=== PATIENT | female | born 1935 | race Caucasian/White ===

== ENCOUNTER 2017-04-16 11:56 | Inpatient (IN) | payer MEDICARE ==
[2017-04-16 13:19] LABS: BASO % 0.9 % (0.0-2.0); HEMOGLOBIN 10.7 g/dL (11.0-16.0); LYMPH # 0.7 K/uL (1.0-4.3); MEAN CELL VOLUME 59.8 fL (81.0-99.0); MEAN CORPUSCULAR HGB CONC 31.7 g/dL (33.0-37.0); MONO # 0.4 K/uL (0.0-0.8); MONO % 11.7 % (0.0-10.0); NEUT # 2.5 K/uL (1.8-7.0); NEUT % 67.4 % (50.0-75.0); NRBC % 0.4 % (0.0-2.0); RBC 5.66 Mil/uL (3.80-5.20); RED CELL DISTRIBUTION WIDTH 18.2 % (11.5-14.5); WHITE BLOOD COUNT 3.8 K/uL (4.8-10.8)
[2017-04-16 13:25] LABS: INR 1.2; PROTHROMBIN TIME 13.4 SECONDS (9.7-12.2)
--- NOTE | 2017-04-16 13:31 | RAD ---
PROCEDURE: CHEST RADIOGRAPH, 1 VIEW HISTORY: SOB COMPARISON: None available. FINDINGS: LUNGS: Patchy opacity in the left lower lobe may represent atelectasis and/or infiltrate. . Small left-sided effusion not excluded. PLEURA: As above. No apparent pneumothorax CARDIOVASCULAR: Normal. OSSEOUS STRUCTURES: No significant abnormalities. VISUALIZED UPPER ABDOMEN: Normal. OTHER FINDINGS: None. IMPRESSION: Patchy opacity in the left lower lobe may represent atelectasis and/or infiltrate. . Small left-sided effusion not excluded.
[2017-04-16 13:43] LABS: ALB/GLOB RATIO 1.3 (1.0-2.1); ALBUMIN 3.8 g/dL (3.5-5.0); ALT/SGPT 24 U/L (9-52); AST/SGOT 20 U/L (14-36); BLOOD UREA NITROGEN 13 mg/dL (7-17); CALCIUM 8.9 mg/dl (8.6-10.4); GFR AFRICAN-AMERICAN > 60; GFR NON-AFRICAN AMERICAN 60; LIPASE 79 U/L (23-300)
[2017-04-16] MEDS ORDERED: Albuterol 0.083% Inhal Sol (2.5 mg/3 mL) UD IH STA (13:44)
[2017-04-16 13:51] LABS: B-TYPE NATRIURETIC PEPTIDE 2790 pg/mL (0-900); CK-MB 0.96 ng/mL (0.0-3.38)
[2017-04-16] MEDS ORDERED: MethylPREDNISolone 40 mg Vial IVP STA (13:59)
[2017-04-16] MEDS ORDERED: cefTRIAXone IV 1 gm in Dextros 50 ML IV ONE (14:00)
--- NOTE | 2017-04-16 14:07 | C.PDOC ---
History Of Present Illness 81 y/o female with PMHx of Stroke and HTN presents to ED with complaints of productive cough for 1-2 weeks. Patient states when she coughs she feels difficulty breathing. Pt saw PMD last week, given medication and had labs. Patient states symptoms persisted, followed up with PMD today and instructed she come to ED for further evaluation. Patient states she "feels good" and denies chest pain, fever or any other complaints at this time. Time Seen by Provider: 04/16/17 12:41 Chief Complaint (Nursing): Shortness Of Breath History Per: Patient History/Exam Limitations: no limitations Onset/Duration Of Symptoms: Days Current Symptoms Are (Timing): Still Present Additional History Per: Patient (Patient came to ED with prescription from Dr. Valverde for admission for COPD exacerbation to Dr. Napoles) Past Medical History Reviewed: Historical Data, Nursing Documentation, Vital Signs Vital Signs: Last Vital Signs Temp 98.6 F 04/16/17 12:31 Pulse 63 04/16/17 12:31 Resp 20 04/16/17 12:31 BP 171/70 H 04/16/17 12:31 Pulse Ox 94 L 04/16/17 16:55 - Medical History PMH: No Chronic Diseases Surgical History: No Surg Hx Family History: States: No Known Family Hx - Social History Hx Alcohol Use: No Hx Substance Use: No - Immunization History Hx Tetanus Toxoid Vaccination: No Hx Influenza Vaccination: No Hx Pneumococcal Vaccination: No Review Of Systems Constitutional: Negative for: Fever, Chills Cardiovascular: Negative for: Chest Pain Respiratory: Positive for: Cough, Shortness of Breath Skin: Negative for: Rash Physical Exam - Physical Exam Appears: Non-toxic, No Acute Distress Skin: Warm, Dry, No Rash Head: Atraumatic, Normacephalic Eye(s): bilateral: Normal Inspection, EOMI Nose: Normal Neck: Normal ROM, Supple Chest: Symmetrical Cardiovascular: Rhythm Regular Respiratory: Normal Breath Sounds, No Accessory Muscle Use, No Rales, No Rhonchi , No Wheezing Gastrointestinal/Abdominal: Soft, No Tenderness, No Guarding, No Rebound Extremity: No Pedal Edema, Capillary Refill (<2 seconds) Neurological/Psych: Oriented x3 ED Course And Treatment - Laboratory Results Result Diagrams: 04/16/17 13:11 04/16/17 13:11 ECG: Interpreted By Me, Viewed By Me ECG Rhythm: Sinus Rhythm ECG Interpretation: Normal Rate From EC (bpm) O2 Sat by Pulse Oximetry: 94 (RA) - Other Rad CXR X-Ray: Viewed By Me, Read By Radiologist Interpretation: PROCEDURE: CHEST RADIOGRAPH, 1 VIEW. HISTORY: SOB. COMPARISON: None available. FINDINGS: LUNGS: Patchy opacity in the left lower lobe may represent atelectasis and/or infiltrate. . Small left-sided effusion not excluded. PLEURA: As above. No apparent pneumothorax. CARDIOVASCULAR: Normal. OSSEOUS STRUCTURES: No significant abnormalities. VISUALIZED UPPER ABDOMEN: Normal. OTHER FINDINGS: None. IMPRESSION: Patchy opacity in the left lower lobe may represent atelectasis and/or infiltrate. . Small left-sided effusion not excluded. Progress Note: Case discussed with Dr Napoles, agreed upon admission. Disposition - Disposition Disposition: HOSPITALIZED Disposition Time: 12:00 Condition: STABLE - Clinical Impression Clinical Impression: Bronchitis, Pneumonia - PA / FILM PROJECTOR OPERATOR / Resident Statement MD/DO has reviewed & agrees with the documentation as recorded. - Scribe Statement The provider has reviewed the documentation as recorded by the Scribe Ino Rodriguez All medical record entries made by the Amyiblashell were at my direction and personally dictated by me. I have reviewed the chart and agree that the record accurately reflects my personal performance of the history, physical exam, medical decision making, and the department course for this patient. I have also personally directed, reviewed, and agree with the discharge instructions and disposition.
[2017-04-16] MEDS ORDERED: MethylPREDNISolone 40 mg Vial ONE (15:27)
[2017-04-16] MEDS ORDERED: guaiFENesin DM 200 mg-20 mg/10 ml UD PO PRN (15:38)
--- NOTE | 2017-04-16 15:44 | CP.PCM.PN ---
Subjective - Date & Time of Evaluation Date of Evaluation: 04/16/17 Time of Evaluation: 15:20 - Subjective Subjective: Patient is seen and examined at bedside. H&P dictated #[id number] Objective - Vital Signs/Intake and Output Vital Signs (last 24 hours): Temp Pulse Resp BP Pulse Ox 98.6 F 63 20 171/70 H 94 L 04/16/17 12:31 04/16/17 12:31 04/16/17 12:31 04/16/17 12:31 04/16/17 14:07 - Medications Medications: Current Medications Ceftriaxone Sodium 1 gm/ (Sodium Chloride) 100 mls @ 100 mls/hr IVPB ONCE ONE Stop: 04/16/17 16:59 Last Admin: 04/16/17 15:24 Dose: 100 mls/hr - Labs Labs: 04/16/17 13:11 04/16/17 13:11 PT 13.4 SECONDS (9.7-12.2) H 04/16/17 13:11 INR 1.2 04/16/17 13:11 APTT 28 SECONDS (21-34) 04/16/17 13:11
[2017-04-16] MEDS ORDERED: Albuterol 0.083% Inhal Sol (2.5 mg/3 mL) UD ONE (16:11)
[2017-04-16] MEDS: MethylPREDNISolone 40 mg Vial IVP SCH ×2 (16:38→22:45)
[2017-04-16] MEDS: Azithromycin 500 MG in Sodium Chloride 0.9% 250 ML IVPB SCH (17:46)
--- NOTE | 2017-04-16 19:26 | CT ---
EXAM: CT Chest Without Intravenous Contrast EXAM DATE/TIME: Exam ordered 04/16/2017 3:39 PM CLINICAL HISTORY: 81 years old, female; Signs and symptoms; Shortness of breath; Additional info: R/O infiltrate TECHNIQUE: Axial computed tomography images of the chest without intravenous contrast. All CT scans at this facility use one or more dose reduction techniques, viz.: automated exposure control; ma/kV adjustment per patient size (including targeted exams where dose is matched to indication; i.e. head); or iterative reconstruction technique. Coronal and sagittal reformatted images were created and reviewed. COMPARISON: No relevant prior studies available. FINDINGS: There is a small hiatal hernia Lungs: There is volume loss with bronchocentric consolidation noted in the anterior segment of the left upper lobe. Bronchocentric consolidation is also noted along the central bronchovascular bundle of the left lower lobe. Small centrilobular nodules surround the area of the consolidation. Motion artifact degrades image quality. Blebs are noted at the lung apices bilaterally. A nodule is noted laterally in the anterior segment of the left upper lobe (series 3 image 52) measuring 7 mm. Pleural space: There is a small left pleural effusion. No pneumothorax. Heart: Unremarkable. No cardiomegaly. No significant pericardial effusion. Bones/joints: There are degenerative changes noted of the lower thoracic spine. No acute fracture. No dislocation. Soft tissues: Unremarkable. Vasculature: Unremarkable. No thoracic aortic aneurysm. Lymph nodes: Unremarkable. No enlarged lymph nodes. IMPRESSION: 1. Left upper lobe pneumonia. Adjacent predominantly centrilobular nodules may reflect pneumonitis. Followup recommended. 2. There is a small hiatal hernia
--- NOTE | 2017-04-16 19:26 | HP ---
CHIEF COMPLAINT: Progressive worsening of cold, cough with wheezing over the past few weeks. HISTORY OF PRESENT ILLNESS: Ms. Menon is an 81-year-old female with history of hypertension, TIA versus CVA without any residual deficits, who has been following up with Dr. Valverde. Came in to the ED as sent by Dr. Valverde to be admitted to the hospital for further management of her acute symptoms. All the history obtained from the patient. As per the patient, she has been having cold symptoms since Sukumar time. Initially, her symptoms got better, but for the past few weeks, her cold symptoms got worse and has been coughing with productive sputum, which is whitish to yellowish in color. Had fever earlier. Denies any fever, but has been having shortness of breath and progressive worsening of wheezing. Denies any fever at the present time. Denies any headache, dizziness. Denies any chest pain. Denies any nausea, vomiting, abdominal pain, diarrhea or constipation. Denies any other urinary complaints. Denies any leg pains or leg cramps. Denies any other neurologic symptoms. PAST MEDICAL HISTORY: As described, hypertension, history of CVA, chronic smoker. PAST SURGICAL HISTORY: Underwent hemorrhoid surgery in 2007. FAMILY HISTORY: Brother is 95, just came out of the hospital with pneumonia. Her sister at age 90. ALLERGIES: NO KNOWN DRUG ALLERGIES. PERSONAL HISTORY: She is single. Lives alone. Not having any children. She was earlier, but . Now living single. 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 SOCIAL HISTORY: She was an ex-smoker, smoked 2 packs per day for about 50 years. Denies any alcohol or drug abuse. HOME MEDICATIONS: Include atenolol 100 mg p.o. b.i.d., Plavix 75 mg p.o. daily. REVIEW OF SYSTEMS: As described in history of present illness. All other systems reviewed and was found to be negative. PHYSICAL EXAMINATION: GENERAL: Elderly female, lying in bed, in no acute distress. VITAL SIGNS: Blood pressure 169/68, pulse 78, respirations 20, temperature 98.6 degrees Fahrenheit, O2 sats 92% on room air. HEENT: Pupils equal, round, reacting to light and accommodation. Extraocular muscles intact. No icterus. Positive pharyngeal congestion. Positive nasal congestion. NECK: Supple. No JVD. LUNGS: Bilateral vesicular breath sounds. Bilateral coarse wheezing heard. Bilateral occasional rhonchi at the base is heard. CARDIOVASCULAR SYSTEM: S1 and S2 present, regular. ABDOMEN: Soft, nontender. Bowel sounds present. No guarding. No rigidity. No rebound tenderness noted. CENTRAL NERVOUS SYSTEM: Alert, awake, oriented x3. No focal deficits noted. EXTREMITIES: No edema. Palpable peripheral pulses. LABORATORY DATA: Labs done from ED, WBC 3.8, hemoglobin 10.7, hematocrit 33.9, platelets 164. PT 13.4, INR 1.2, PTT 28. Sodium 135, potassium 3.9, chloride 100, bicarb 29, BUN 13, creatinine 0.9, glucose 101, calcium 8.9, total bili 0.7, AST 20, ALT 24, alkaline phosphatase 59. Cardiac enzymes x1 negative. ProBNP 2790. Total protein 6.6, albumin 3.8, globulin 2.8, lipase 79. Chest x-ray: Questionable patchy opacity in the left lower lobe, may represent atelectasis versus infiltrates. Small left-sided effusion not excluded. ASSESSMENT: Elderly female with history of hypertension, history of cerebrovascular accident, chronic smoker, not on any bronchodilators, admitted for progressively worsening symptoms of cold, cough, wheezing and shortness of breath over the past 3 weeks. The patient is being admitted for further management. Her symptoms consistent with acute bronchitis with the bronchospasm. Rule out pneumonia. Prior history of smoking, hypertension, history of cerebrovascular accident. PLAN: The patient is being admitted to telemetry. We will give nebulizer treatments every 6 hours. The patient received Rocephin in the ED and Solu-Medrol. We will give Solu-Medrol 40 mg IV q. 8 hours. Continue with Rocephin. Start Zithromax 500 mg IV daily. We will get CT scan of the chest to rule out any infiltrates. We will give cough syrup. Start Singulair 10 mg daily. Blood pressure is high. We will continue with Tenormin 100 mg p.o. b.i.d. and monitor blood pressure closely. Adjust medications as needed. Plavix 75 mg p.o. daily, Protonix for GI prophylaxis and subcu heparin for DVT prophylaxis. We will add further recommendation as her clinical course progresses. Boom Napoles MD [facility] # [id number]
[2017-04-16] MEDS: Albuterol-Ipratrop 3 mg / 0.5 (3 ml) UD INH SCH (19:47)
[2017-04-16 20:21] LABS: SQUAMOUS EPITHIAL < 1 /hpf (0-5); URINE BILIRUBIN NEGATIVE (NEGATIVE); URINE BLOOD NEGATIVE (NEGATIVE); URINE CLARITY Clear (Clear); URINE COLOR Yellow (YELLOW); URINE GLUCOSE (UA) NORMAL (Normal); URINE LEUKOCYTE ESTERASE NEG Leu/uL (Negative); URINE NITRATE NEGATIVE (NEGATIVE); URINE PROTEIN NEGATIVE (NEGATIVE); URINE UROBILINOGEN NORMAL mg/dL (0.2-1.0)
[2017-04-17] MEDS: Albuterol-Ipratrop 3 mg / 0.5 (3 ml) UD INH SCH ×4 (01:38→19:29)
[2017-04-17 06:32] LABS: BASO % 0.2 % (0.0-2.0); HEMOGLOBIN 10.8 g/dL (11.0-16.0); LYMPH # 0.5 K/uL (1.0-4.3); LYMPH % 18.7 % (20.0-40.0); MEAN CELL VOLUME 59.8 fL (81.0-99.0); MEAN CORPUSCULAR HEMOGLOBIN 18.7 pg (27.0-31.0); MEAN CORPUSCULAR HGB CONC 31.3 g/dL (33.0-37.0); MONO # 0.1 K/uL (0.0-0.8); MONO % 2.4 % (0.0-10.0); NEUT # 2.3 K/uL (1.8-7.0); NEUT % 78.7 % (50.0-75.0); NRBC % 0.1 % (0.0-2.0); RBC 5.74 Mil/uL (3.80-5.20); RED CELL DISTRIBUTION WIDTH 18.2 % (11.5-14.5); WHITE BLOOD COUNT 2.9 K/uL (4.8-10.8)
[2017-04-17 06:51] LABS: ALB/GLOB RATIO 1.3 (1.0-2.1); ALBUMIN 3.6 g/dL (3.5-5.0); ALT/SGPT 17 U/L (9-52); AST/SGOT 17 U/L (14-36); BLOOD UREA NITROGEN 13 mg/dL (7-17); GFR AFRICAN-AMERICAN > 60; GFR NON-AFRICAN AMERICAN > 60; HDL CHOLESTEROL 48 mg/dL (30-70)
[2017-04-17 06:59] LABS: LDL CHOLESTEROL 64 mg/dL (0-129)
[2017-04-17 07:51] LABS: FOLATE 8.7 ng/mL
[2017-04-17] MEDS: MethylPREDNISolone 40 mg Vial IVP SCH ×3 (08:43→23:55)
[2017-04-17] MEDS: Azithromycin 500 MG in Sodium Chloride 0.9% 250 ML IVPB SCH (11:00)
--- NOTE | 2017-04-17 11:32 | CP.PCM.PN ---
Subjective - Date & Time of Evaluation Date of Evaluation: 04/17/17 Time of Evaluation: 11:40 - Subjective Subjective: Progress note dictated #[id number] Objective - Vital Signs/Intake and Output Vital Signs (last 24 hours): Temp Pulse Resp BP Pulse Ox 98 F 79 20 137/66 96 04/17/17 07:00 04/17/17 09:45 04/17/17 07:00 04/17/17 09:45 04/17/17 07:00 Intake and Output: 04/17/17 04/17/17 06:59 18:59 Intake Total 50 Balance 50 - Medications Medications: Current Medications Albuterol/Ipratropium (Duoneb 3 Mg/0.5 Mg (3 Ml) Ud) 3 ml INH RQ6 [facility] Last Admin: 04/17/17 07:38 Dose: 3 ml Atenolol (Tenormin) 100 mg PO BID [facility] Last Admin: 04/17/17 09:49 Dose: 100 mg Clopidogrel Bisulfate (Plavix) 75 mg PO DAILY [facility] Last Admin: 04/17/17 09:49 Dose: 75 mg Famotidine (Pepcid) 20 mg PO BID [facility] Last Admin: 04/17/17 09:49 Dose: 20 mg Guaifenesin/Dextromethorphan (Robitussin Dm) 10 ml PO Q4H PRN PRN Reason: Cough and congestion Heparin Sodium (Porcine) (Heparin) 5,000 units SC Q8 [facility] Last Admin: 04/17/17 05:46 Dose: 5,000 units Azithromycin 500 mg/ Sodium (Chloride) 250 mls @ 250 mls/hr IVPB DAILY [facility] Last Admin: 04/17/17 11:00 Dose: 250 mls/hr Ceftriaxone Sodium 1 gm/ (Sodium Chloride) 100 mls @ 100 mls/hr IVPB DAILY [facility] Last Admin: 04/17/17 09:49 Dose: 100 mls/hr Methylprednisolone (Solu-Medrol) 40 mg IVP Q8H [facility] Last Admin: 04/17/17 08:43 Dose: 40 mg Montelukast Sodium (Singulair) 10 mg PO HS [facility] Last Admin: 04/16/17 22:49 Dose: 10 mg - Labs Labs: 04/17/17 06:25 04/17/17 06:25 PT 13.4 SECONDS (9.7-12.2) H 04/16/17 13:11 INR 1.2 04/16/17 13:11 APTT 28 SECONDS (21-34) 04/16/17 13:11
[2017-04-17] MEDS: guaiFENesin DM 200 mg-20 mg/10 ml UD PO SCH ×2 (12:12→18:13)
--- NOTE | 2017-04-17 13:06 | PN ---
DATE: 04/17/2017 SUBJECTIVE: The patient is seen and examined at bedside. The patient is still complaining of cough with wheezing and shortness of breath on exertion. Denies any fever. Cough is still there, but worse at nighttime. All other systems reviewed and were found to be negative. PHYSICAL EXAMINATION: GENERAL: Elderly female, lying in bed, in no acute distress. VITAL SIGNS: Blood pressure 137/66, pulse rate 79, respirations 20, temperature 98 degrees Fahrenheit, O2 sats 96% on 2 L nasal cannula. HEENT: Pupils equal, round, reacting to light and accommodation. Extraocular muscles intact. No icterus. No pallor. No oral thrush. Positive pharyngeal congestion. NECK: Supple. No JVD. LUNGS: Bilateral vesicular breath sounds. Decreased bilateral wheezing. CARDIOVASCULAR SYSTEM: S1 and S2 present. Systolic murmur heard. ABDOMEN: Soft, nontender. Bowel sounds present. No guarding. No rigidity. No rebound tenderness noted. CENTRAL NERVOUS SYSTEM: Alert, awake, oriented x3. No focal deficits noted. EXTREMITIES: No edema. Palpable peripheral pulses. LABORATORY DATA: Labs from today, WBC 2.9, hemoglobin 10.8, hematocrit 34.3, platelets 170. Sodium 136, potassium 4.4, chloride 99, bicarb 30, BUN 13, creatinine 0.8, glucose 135, hemoglobin A1c 6.2, calcium 9.0. Iron saturation 9, ferritin 42. AST 17, ALT 17, alkaline phosphatase 56. Triglycerides 72, cholesterol 144, LDL 64, HDL 48, B12 of 849, folate 8.7. UA negative. Ferritin is 42. CT chest consistent with left lobe consolidation. Small hiatal hernia. MEDICATIONS: Include DuoNeb, atenolol 100 mg b.i.d., Zithromax 500 mg daily, Rocephin 1 g daily, Plavix 75 mg p.o. daily, Pepcid 20 mg p.o. b.i.d., Robitussin DM, subcu heparin, Solu-Medrol 40 mg IV q. 8 hours, Singulair 10 mg at bedtime. ASSESSMENT AND PLAN: Elderly female with history of hypertension, history of cerebrovascular accident, admitted for worsening shortness of breath and cough. CT chest consistent with pneumonia, left lobe with bronchospasm and asthma exacerbation. Found to have iron-deficiency anemia. We will continue with current antibiotic with Rocephin, Zithromax and continue with nebulizer treatments and prednisone. We will give cough medicine round the clock. Continue with deep venous thrombosis and gastrointestinal prophylaxis. Continue with Singulair. We will start ferrous sulfate 325 mg p.o. b.i.d. Advise the patient to have screening colonoscopy and routine followups as outpatient. We will add further recommendations as her clinical course progresses. Boom Napoles MD
[2017-04-18] MEDS: guaiFENesin DM 200 mg-20 mg/10 ml UD PO SCH ×4 (00:40→19:04)
[2017-04-18] MEDS: Albuterol-Ipratrop 3 mg / 0.5 (3 ml) UD INH SCH ×4 (01:41→19:57)
[2017-04-18] MEDS: MethylPREDNISolone 40 mg Vial IVP SCH ×2 (08:22→21:25)
[2017-04-18] MEDS: Azithromycin 500 MG in Sodium Chloride 0.9% 250 ML IVPB SCH (11:00)
--- NOTE | 2017-04-18 11:09 | CARD ---
APPROVED REPORT EKG Measurement Heart [id number] PA [id number] [id number] <Conclusion> Normal sinus rhythm Cannot rule out Anterior infarct, age undetermined Abnormal ECG
--- NOTE | 2017-04-18 11:53 | CP.PCM.PN ---
Subjective - Date & Time of Evaluation Date of Evaluation: 04/18/17 Time of Evaluation: 11:40 - Subjective Subjective: Progress note dictated # [id number] Objective - Vital Signs/Intake and Output Vital Signs (last 24 hours): Temp Pulse Resp BP Pulse Ox 98.3 F 82 20 180/74 H 94 L 04/18/17 08:00 04/18/17 08:00 04/18/17 08:00 04/18/17 08:00 04/18/17 11:28 Intake and Output: 04/18/17 04/18/17 06:59 18:59 Intake Total 520 Balance 520 - Medications Medications: Current Medications Albuterol/Ipratropium (Duoneb 3 Mg/0.5 Mg (3 Ml) Ud) 3 ml INH RQ6 [facility] Last Admin: 04/18/17 07:36 Dose: 3 ml Atenolol (Tenormin) 100 mg PO BID [facility] Last Admin: 04/18/17 09:41 Dose: 100 mg Clopidogrel Bisulfate (Plavix) 75 mg PO DAILY [facility] Last Admin: 04/18/17 09:41 Dose: 75 mg Famotidine (Pepcid) 20 mg PO BID [facility] Last Admin: 04/18/17 09:41 Dose: 20 mg Ferrous Sulfate (Feosol) 325 mg PO BID [facility] Last Admin: 04/18/17 09:41 Dose: 325 mg Guaifenesin/Dextromethorphan (Robitussin Dm) 10 ml PO Q6H [facility] Last Admin: 04/18/17 11:23 Dose: 10 ml Azithromycin 500 mg/ Sodium (Chloride) 250 mls @ 250 mls/hr IVPB DAILY [facility] Last Admin: 04/18/17 11:00 Dose: 250 mls/hr Ceftriaxone Sodium 1 gm/ (Sodium Chloride) 100 mls @ 100 mls/hr IVPB DAILY [facility] Last Admin: 04/18/17 09:42 Dose: 100 mls/hr Montelukast Sodium (Singulair) 10 mg PO HS [facility] Last Admin: 04/17/17 22:23 Dose: 10 mg - Labs Labs: 04/17/17 06:25 04/17/17 06:25 PT 13.4 SECONDS (9.7-12.2) H 04/16/17 13:11 INR 1.2 04/16/17 13:11 APTT 28 SECONDS (21-34) 04/16/17 13:11
[2017-04-18] MEDS ORDERED: MethylPREDNISolone 40 mg Vial IVP SCH (12:00)
[2017-04-18 18:21] LABS: LEGIONELLA AG URINE NEGATIVE (NEGATIVE)
[2017-04-18 18:24] LABS: MYCOPLASMA PNEUMONIAE IGM NEGATIVE (NEGATIVE)
--- NOTE | 2017-04-18 18:58 | CP.PCM.CON ---
History of Present Illness - History of Present Illness History of Present Illness: patient seen/examined. full consult to follow. echocardiogram reviewed. Patient has severe aortic valve stenosis. currently has bronchitis/respiratory infection/COPD. Recommend continued medical therapy and antibiotic therapy. will treat medically and schedule for outpatient cardiac cath and further management of aortic stenosis. Past Patient History - Past Medical History & Family History Past Medical History?: Yes - Past Social History Smoking Status: Former Smoker - CARDIAC Hx Hypertension: Yes - PULMONARY Hx Respiratory Disorders: No - NEUROLOGICAL HX Cerebrovascular Accident: Yes - HEENT Hx HEENT Problems: No - RENAL Hx Chronic Kidney Disease: No - ENDOCRINE/METABOLIC Hx Endocrine Disorders: No - HEMATOLOGICAL/ONCOLOGICAL Hx Blood Disorders: No - INTEGUMENTARY Hx Dermatological Problems: No - MUSCULOSKELETAL/RHEUMATOLOGICAL Hx Musculoskeletal Disorders: No Hx Falls: No - GASTROINTESTINAL Hx Gastrointestinal Disorders: No - GENITOURINARY/GYNECOLOGICAL Hx Genitourinary Disorders: No - PSYCHIATRIC Hx Substance Use: No - SURGICAL HISTORY Hx Surgeries: No - ANESTHESIA Hx Anesthesia: No Meds Allergies/Adverse Reactions: Allergies Allergy/AdvReac Type Severity Reaction Status Date / Time No Known Allergies Allergy Verified 04/16/17 12:36 - Medications Medications: Current Medications Albuterol/Ipratropium (Duoneb 3 Mg/0.5 Mg (3 Ml) Ud) 3 ml INH RQ6 [facility] Last Admin: 04/18/17 13:38 Dose: 3 ml Atenolol (Tenormin) 100 mg PO BID [facility] Last Admin: 04/18/17 09:41 Dose: 100 mg Clopidogrel Bisulfate (Plavix) 75 mg PO DAILY [facility] Last Admin: 04/18/17 09:41 Dose: 75 mg Famotidine (Pepcid) 20 mg PO BID [facility] Last Admin: 04/18/17 09:41 Dose: 20 mg Ferrous Sulfate (Feosol) 325 mg PO BID [facility] Last Admin: 04/18/17 09:41 Dose: 325 mg Guaifenesin/Dextromethorphan (Robitussin Dm) 10 ml PO Q6H [facility] Last Admin: 04/18/17 11:23 Dose: 10 ml Heparin Sodium (Porcine) (Heparin) 5,000 units SC Q12H [facility] Azithromycin 500 mg/ Sodium (Chloride) 250 mls @ 250 mls/hr IVPB DAILY [facility] Last Admin: 04/18/17 11:00 Dose: 250 mls/hr Ceftriaxone Sodium 1 gm/ (Sodium Chloride) 100 mls @ 100 mls/hr IVPB DAILY [facility] Last Admin: 04/18/17 09:42 Dose: 100 mls/hr Methylprednisolone (Solu-Medrol) 40 mg IVP Q12H [facility] Montelukast Sodium (Singulair) 10 mg PO HS [facility] Last Admin: 04/17/17 22:23 Dose: 10 mg Results - Vital Signs Recent Vital Signs: Last Vital Signs Temp 97.8 F 04/18/17 15:17 Pulse 76 04/18/17 15:17 Resp 18 04/18/17 15:17 BP 163/79 H 04/18/17 15:17 Pulse Ox 94 L 04/18/17 15:17 - Labs Result Diagrams: 04/17/17 06:25 04/17/17 06:25 Labs: Laboratory Results - last 24 hr 04/17/17 04/17/17 04/18/17 16:25 21:23 06:28 POC Glucose (mg/dL) 120 H 115 H 122 H Ur L.pneumophila Ag Mycoplasma pneumon IgM 04/18/17 04/18/17 04/18/17 11:10 13:48 16:44 POC Glucose (mg/dL) 118 H 130 H Ur L.pneumophila Ag Negative Mycoplasma pneumon IgM Negative
--- NOTE | 2017-04-18 18:59 | CP.PCM.CON ---
History of Present Illness - History of Present Illness History of Present Illness: I was asked to see patient by Dr Farley. Patient is a 81 year old female with a history of HTN, hypercholesterolemia who presents with cough and dyspnea. The patient states symptoms began about 2 weeks ago. She has noted productive cough and subjective fever. The patient has also noted shortness of breath for the last month. She denies chest pain. Review of Systems - Constitutional Constitutional: absent: As Per HPI, Anorexia, Chills, Daytime Sleepiness, Excessive Sweating, Fatigue, Fever, Frequent Falls, Headache, Increased Appetite , Lethargy, Malaise, Night Sweats, Snoring, Sleep Apnea, Weight Gain, Weight Loss, Weakness, Other - EENT Eyes: absent: As Per HPI, Blind Spots, Blurred Vision, Change in Vision, Decreased Night Vision, Diplopia, Discharge, Dry Eye, Exophthalmos, Floaters, Irritation, Itchy Eyes, Loss of Peripheral Vision, Pain, Photophobia, Requires Corrective Lenses, Sees Flashes, Spots in Vision, Tunnel Vision, Other Visual Disturbances, Loss of Vision, Other Ears: absent: As Per HPI, Decreased Hearing, Ear Discharge, Ear Pain, Tinnitus, Abnormal Hearing, Disequilibrium, Dizziness, Other Nose/Mouth/Throat: absent: As Per HPI, Epistaxis, Nasal Congestion, Nasal Discharge, Nasal Obstruction, Nasal Trauma, Nose Pain, Post Nasal Drip, Sinus Pain, Sinus Pressure, Bleeding Gums, Change in Voice, Dental Pain, Dry Mouth, Dysphagia, Halitosis, Hoarsness, Lip Swelling, Mouth Lesions, Mouth Pain, Odynophagia, Sore Throat, Throat Swelling, Tongue Swelling, Facial Pain, Neck Pain, Neck Mass, Other - Cardiovascular Cardiovascular: Dyspnea, Dyspnea on Exertion - Respiratory Respiratory: Cough, Dyspnea on Exertion - Gastrointestinal Gastrointestinal: absent: As Per HPI, Abdominal Pain, Belching, Bloating, Change in Bowel Habits, Change in Stool Character, Coffee Ground Emesis, Constipation, Cramping, Diarrhea, Dyspepsia, Dysphagia, Early Satiety, Excessive Flatus, Fecal Incontinence, Heartburn, Hematemesis, Hematochezia, Loose Stools, Melena, Nausea, Odynophagia, Temesmus, Vomiting, Other - Genitourinary Genitourinary: absent: As Per HPI, Change in Urinary Stream, Difficulty Urinating, Dysuria, Flank Pain, Hematuria, Pyuria, Nocturia, Urinary Incontinence, Urinary Frequency, Urinary Hesitance, Urinary Urgency, Voiding Freq/Small Amts, Freq UTI, Hx Renal/Bladder Calculi, Hx /Renal Surgery, Bladder Distension, Other - Musculoskeletal Musculoskeletal: absent: As Per HPI, Abnormal Gait, Arthralgias, Atrophy, Back Pain, Deformity, Joint Swelling, Limited Range of Motion, Loss of Height, Muscle Cramps, Muscle Weakness, Myalgias, Neck Pain, Numbness, Radiating Pain into Limb, Stiffness, Tingling, Other - Integumentary Integumentary: absent: As Per HPI, Acne, Alopecia, Bleeding Lesions, Change in Hair, Change in Nails, Change in Pigmentation, Changing Lesions, Dry Skin, Erythema, Furuncle, Hirsutism, Lesions, New Lesions, Non-Healing Lesions, Photosensitivity, Pruritus, Rash, Skin Pain, Skin Ulcer, Sores, Striae, Swelling , Unusual Bruising, Wounds, Jaundice, Other - Neurological Neurological: absent: As Per HPI, Abnormal Gait, Abnormal Hearing, Abnormal Movements, Abnormal Speech, Behavioral Changes, Burning Sensations, Confusion, Convulsions, Disequilibrium, Dizziness, Numbness, Focal Weakness, Frequent Falls , Headaches, Lack of Coordination, Loss of Vision, Memory Loss, Paresthesias, Radicular Pain, Restless Legs, Sensory Deficit, Syncope, Tingling, Tremor, Vertigo, Weakness, Other Visual Disturbances, Other - Psychiatric Psychiatric: absent: As Per HPI, Abnormal Sleep Pattern, Anhedonia, Anxiety, Auditory Hallucinations, Behavioral Changes, Change in Appetite, Change in Libido, Confusion, Depression, Difficulty Concentrating, Hallucinations, Homicidal Ideation, Hopelessness, Irritability, Memory Loss, Mood Swings, Panic Attacks, Paranoia, Suicidal Ideation, Visual Hallucinations, Tactile Hallucinations, Other - Endocrine Endocrine: absent: As Per HPI, Change in Body Appearance, Change in Libido, Cold Intolorance, Deepening of Voice, Excessive Sweating, Fatigue, Flushing, Heat Intolorance, Increase in Ring/Shoe/Hat Size, Palpitations, Polydipsia, Polyphagia, Polyuria, Other - Hematologic/Lymphatic Hematologic: absent: As Per HPI, Easy Bleeding, Easy Bruising, Lymphadenopathy, Other Past Patient History - Past Medical History & Family History Past Medical History?: Yes - Past Social History Smoking Status: Former Smoker - CARDIAC Hx Hypertension: Yes - PULMONARY Hx Respiratory Disorders: No - NEUROLOGICAL HX Cerebrovascular Accident: Yes - HEENT Hx HEENT Problems: No - RENAL Hx Chronic Kidney Disease: No - ENDOCRINE/METABOLIC Hx Endocrine Disorders: No - HEMATOLOGICAL/ONCOLOGICAL Hx Blood Disorders: No - INTEGUMENTARY Hx Dermatological Problems: No - MUSCULOSKELETAL/RHEUMATOLOGICAL Hx Musculoskeletal Disorders: No Hx Falls: No - GASTROINTESTINAL Hx Gastrointestinal Disorders: No - GENITOURINARY/GYNECOLOGICAL Hx Genitourinary Disorders: No - PSYCHIATRIC Hx Substance Use: No - SURGICAL HISTORY Hx Surgeries: No - ANESTHESIA Hx Anesthesia: No Meds Allergies/Adverse Reactions: Allergies Allergy/AdvReac Type Severity Reaction Status Date / Time No Known Allergies Allergy Verified 04/16/17 12:36 - Medications Medications: Current Medications Albuterol/Ipratropium (Duoneb 3 Mg/0.5 Mg (3 Ml) Ud) 3 ml INH RQ6 [facility] Last Admin: 04/18/17 13:38 Dose: 3 ml Atenolol (Tenormin) 100 mg PO BID [facility] Last Admin: 04/18/17 09:41 Dose: 100 mg Clopidogrel Bisulfate (Plavix) 75 mg PO DAILY [facility] Last Admin: 04/18/17 09:41 Dose: 75 mg Famotidine (Pepcid) 20 mg PO BID [facility] Last Admin: 04/18/17 09:41 Dose: 20 mg Ferrous Sulfate (Feosol) 325 mg PO BID [facility] Last Admin: 04/18/17 09:41 Dose: 325 mg Guaifenesin/Dextromethorphan (Robitussin Dm) 10 ml PO Q6H [facility] Last Admin: 04/18/17 11:23 Dose: 10 ml Heparin Sodium (Porcine) (Heparin) 5,000 units SC Q12H [facility] Azithromycin 500 mg/ Sodium (Chloride) 250 mls @ 250 mls/hr IVPB DAILY [facility] Last Admin: 04/18/17 11:00 Dose: 250 mls/hr Ceftriaxone Sodium 1 gm/ (Sodium Chloride) 100 mls @ 100 mls/hr IVPB DAILY [facility] Last Admin: 04/18/17 09:42 Dose: 100 mls/hr Methylprednisolone (Solu-Medrol) 40 mg IVP Q12H [facility] Montelukast Sodium (Singulair) 10 mg PO HS [facility] Last Admin: 04/17/17 22:23 Dose: 10 mg Physical Exam - Constitutional Appears: Non-toxic - Head Exam Head Exam: NORMAL INSPECTION - Eye Exam Eye Exam: Normal appearance - ENT Exam ENT Exam: Mucous Membranes Moist - Neck Exam Neck exam: Positive for: Normal Inspection - Respiratory Exam Respiratory Exam: Decreased Breath Sounds, Wheezes - Cardiovascular Exam Cardiovascular Exam: REGULAR RHYTHM, Systolic Murmur - GI/Abdominal Exam GI & Abdominal Exam: Normal Bowel Sounds - Rectal Exam Rectal Exam: Deferred - Extremities Exam Extremities exam: Negative for: pedal edema - Back Exam Back exam: NORMAL INSPECTION - Neurological Exam Neurological exam: Alert, Oriented x3 - Psychiatric Exam Psychiatric exam: Normal Affect - Skin Skin Exam: Normal Color Results - Vital Signs Recent Vital Signs: Last Vital Signs Temp 97.8 F 04/18/17 15:17 Pulse 76 04/18/17 15:17 Resp 18 04/18/17 15:17 BP 163/79 H 04/18/17 15:17 Pulse Ox 94 L 04/18/17 15:17 - Labs Result Diagrams: 04/19/17 06:03 04/19/17 06:03 Labs: Laboratory Results - last 24 hr 04/17/17 04/17/17 04/18/17 16:25 21:23 06:28 POC Glucose (mg/dL) 120 H 115 H 122 H Ur L.pneumophila Ag Mycoplasma pneumon IgM 04/18/17 04/18/17 04/18/17 11:10 13:48 16:44 POC Glucose (mg/dL) 118 H 130 H Ur L.pneumophila Ag Negative Mycoplasma pneumon IgM Negative - EKG Data EKG Interpreted by: Myself EKG shows normal: Sinus rhythm Assessment & Plan (1) Aortic stenosis Assessment and Plan: I reviewed the echocardiogram. There is severe calcification of the aortic valve with severe aortic stenosis. This is the likely cause of the patient's dyspnea. Recommend medical therapy and blood pressure control. will avoid afterload reduction. will need eventula cardiac catheterization for furtehr evaluation, but this can be arranged as an outpatient. Status: Acute
[2017-04-19] MEDS: guaiFENesin DM 200 mg-20 mg/10 ml UD PO SCH ×4 (00:20→17:35)
[2017-04-19] MEDS: Albuterol-Ipratrop 3 mg / 0.5 (3 ml) UD INH SCH ×4 (01:09→20:33)
--- NOTE | 2017-04-19 01:31 | PN ---
DATE: 04/18/2017 SUBJECTIVE: Patient was seen and examined at bedside. Patient was complaining of feeling rapid heart rate with palpitations, was feeling anxious after getting subcu heparin therapy last night. Patient told RN that she did not want heparin. She thinks that her symptoms are from heparin. Denies any headache, dizziness, but her shortness of breath is slightly better. Her cough is better with the cough medicine. Denies any new complaints. All other systems reviewed and were found to be negative. PHYSICAL EXAMINATION: GENERAL: Elderly female, lying in bed, in no acute distress. VITAL SIGNS: Blood pressure 136/79, pulse 76, respirations 18, temperature 97.8 degrees Fahrenheit, O2 sat 94% on room air. HEENT: Pupils equal, round, reacting to light and accommodation. Extraocular muscles are intact. No icterus. No pallor. Mucous membranes moist. NECK: Supple. No JVD. LUNGS: Bilateral vesicular breath sounds. Bilateral wheezing present. Left basilar crackles heard. CARDIOVASCULAR SYSTEM: S1 and S2 present. Early diastolic murmur heard. ABDOMEN: Soft, nontender. Bowel sounds present. No guarding. No rigidity. No rebound tenderness noted. CENTRAL NERVOUS SYSTEM: Alert, awake, oriented x3. No focal deficits noted. EXTREMITIES: No edema. Palpable peripheral pulses. MEDICATIONS: Include DuoNeb, Tenormin 100 mg p.o. b.i.d., Zithromax 500 mg daily, Rocephin 1 g daily, Plavix 75 mg p.o. daily, Pepcid 20 mg p.o. b.i.d., ferrous sulfate 325 mg p.o. b.i.d., Solu-Medrol 40 mg IV q. 8 hours, subcu heparin, Robitussin DM, and Singulair 10 mg p.o. at bedtime. LABORATORY DATA: Mycoplasma and Legionella negative. Accu-Cheks 122, 118, 131 twice. Echo done, results pending. ASSESSMENT AND PLAN: An elderly female with a history of hypertension, history of cerebrovascular accident, admitted for chronic obstructive pulmonary disease exacerbation with left lobe pneumonia, an episode of palpitation, probably secondary to anxiety, rule out other cardiac causes. Patient had echocardiogram done and results pending. Continue with nebulizer treatments. Continue with Solu-Medrol. We will decrease Solu-Medrol to 40 mg IV q. 12 hours. Continue with Rocephin and Zithromax. Decrease heparin to 5000 units subcutaneous q. 12 hours. We will obtain Cardiology evaluation with Dr. Workman as her physical examination is consistent with possible aortic stenosis. Blood pressure is slightly high. Continue with Tenormin. Add Norvasc 2.5 mg daily. Legionella and Mycoplasma negative. We will continue with deep venous thrombosis and gastrointestinal prophylaxis. Boom Napoles MD
[2017-04-19 06:14] LABS: BASO % 0.1 % (0.0-2.0); HEMOGLOBIN 10.6 g/dL (11.0-16.0); LYMPH # 0.7 K/uL (1.0-4.3); LYMPH % 8.1 % (20.0-40.0); MEAN CELL VOLUME 60.4 fL (81.0-99.0); MEAN CORPUSCULAR HEMOGLOBIN 19.6 pg (27.0-31.0); MEAN CORPUSCULAR HGB CONC 32.4 g/dL (33.0-37.0); MEAN PLATELET VOLUME 8.8 fL (7.2-11.7); MONO # 0.3 K/uL (0.0-0.8); MONO % 4.1 % (0.0-10.0); NEUT # 7.3 K/uL (1.8-7.0); NEUT % 87.7 % (50.0-75.0); PLATELET COUNT 191 K/uL (130-400); RBC 5.43 Mil/uL (3.80-5.20); RED CELL DISTRIBUTION WIDTH 18.2 % (11.5-14.5); WHITE BLOOD COUNT 8.3 K/uL (4.8-10.8)
[2017-04-19 06:31] LABS: ALB/GLOB RATIO 1.3 (1.0-2.1); ALBUMIN 3.6 g/dL (3.5-5.0); ALT/SGPT 20 U/L (9-52); AST/SGOT 21 U/L (14-36); BLOOD UREA NITROGEN 25 mg/dL (7-17); CALCIUM 9.3 mg/dl (8.6-10.4); GFR AFRICAN-AMERICAN > 60; GFR NON-AFRICAN AMERICAN 60
[2017-04-19] MEDS: MethylPREDNISolone 40 mg Vial IVP SCH (08:24)
[2017-04-19 10:11] LABS: ANISOCYTOSIS SLIGHT; BANDS 2 % (0-2); HYPOCHROMIC MODERATE; LYMPHOCYTE 7 % (20-40); MONOCYTE 3 % (0-10); NEUTROPHIL 88 % (50-75); OVALOCYTES MODERATE; PLATELET ESTIMATE NORMAL (NORMAL); POIKILOCYTOSIS SLIGHT; TOTAL CELLS COUNTED 100
[2017-04-19 10:12] LABS: GIANT PLATELETS PRESENT; LARGE PLATELETS PRESENT
--- NOTE | 2017-04-19 11:09 | CP.PCM.PN ---
Subjective - Date & Time of Evaluation Date of Evaluation: 04/19/17 Time of Evaluation: 11:00 - Subjective Subjective: Progress note dictated # [id number] Objective - Vital Signs/Intake and Output Vital Signs (last 24 hours): Temp Pulse Resp BP Pulse Ox 97.4 F L 60 20 192/72 H 95 04/19/17 08:00 04/19/17 10:15 04/19/17 08:00 04/19/17 10:15 04/19/17 08:00 Intake and Output: 04/19/17 04/19/17 06:59 18:59 Intake Total 0 Balance 0 - Medications Medications: Current Medications Albuterol/Ipratropium (Duoneb 3 Mg/0.5 Mg (3 Ml) Ud) 3 ml INH RQ6 [facility] Last Admin: 04/19/17 07:40 Dose: 3 ml Amlodipine Besylate (Norvasc) 7.5 mg PO DAILY [facility] Amlodipine Besylate (Norvasc) 10 mg PO DAILY [facility] Atenolol (Tenormin) 100 mg PO BID [facility] Last Admin: 04/19/17 10:17 Dose: 100 mg Clopidogrel Bisulfate (Plavix) 75 mg PO DAILY [facility] Last Admin: 04/19/17 10:17 Dose: 75 mg Famotidine (Pepcid) 20 mg PO BID [facility] Last Admin: 04/19/17 10:17 Dose: 20 mg Ferrous Sulfate (Feosol) 325 mg PO BID [facility] Last Admin: 04/19/17 10:17 Dose: 325 mg Guaifenesin/Dextromethorphan (Robitussin Dm) 10 ml PO Q6H [facility] Last Admin: 04/19/17 06:21 Dose: Not Given Heparin Sodium (Porcine) (Heparin) 5,000 units SC Q12H [facility] Last Admin: 04/19/17 06:20 Dose: 5,000 units Azithromycin 500 mg/ Sodium (Chloride) 250 mls @ 250 mls/hr IVPB DAILY [facility] Last Admin: 04/18/17 11:00 Dose: 250 mls/hr Ceftriaxone Sodium 1 gm/ (Sodium Chloride) 100 mls @ 100 mls/hr IVPB DAILY [facility] Last Admin: 04/19/17 10:18 Dose: 100 mls/hr Montelukast Sodium (Singulair) 10 mg PO HS [facility] Last Admin: 04/18/17 21:33 Dose: 10 mg - Labs Labs: 04/19/17 06:03 04/19/17 06:03 PT 13.4 SECONDS (9.7-12.2) H 04/16/17 13:11 INR 1.2 04/16/17 13:11 APTT 28 SECONDS (21-34) 04/16/17 13:11
--- NOTE | 2017-04-19 11:11 | CP.PCM.PN ---
Subjective - Date & Time of Evaluation Date of Evaluation: 04/19/17 Time of Evaluation: 11:00 - Subjective Subjective: Patient had dyspnea today. no chest pain Objective - Vital Signs/Intake and Output Vital Signs (last 24 hours): Temp Pulse Resp BP Pulse Ox 97.4 F L 60 20 192/72 H 95 04/19/17 08:00 04/19/17 10:15 04/19/17 08:00 04/19/17 10:15 04/19/17 08:00 Intake and Output: 04/19/17 04/19/17 06:59 18:59 Intake Total 0 Balance 0 - Medications Medications: Current Medications Albuterol/Ipratropium (Duoneb 3 Mg/0.5 Mg (3 Ml) Ud) 3 ml INH RQ6 [facility] Last Admin: 04/19/17 07:40 Dose: 3 ml Amlodipine Besylate (Norvasc) 7.5 mg PO DAILY [facility] Amlodipine Besylate (Norvasc) 10 mg PO DAILY [facility] Atenolol (Tenormin) 100 mg PO BID [facility] Last Admin: 04/19/17 10:17 Dose: 100 mg Clopidogrel Bisulfate (Plavix) 75 mg PO DAILY [facility] Last Admin: 04/19/17 10:17 Dose: 75 mg Famotidine (Pepcid) 20 mg PO BID [facility] Last Admin: 04/19/17 10:17 Dose: 20 mg Ferrous Sulfate (Feosol) 325 mg PO BID [facility] Last Admin: 04/19/17 10:17 Dose: 325 mg Guaifenesin/Dextromethorphan (Robitussin Dm) 10 ml PO Q6H [facility] Last Admin: 04/19/17 06:21 Dose: Not Given Heparin Sodium (Porcine) (Heparin) 5,000 units SC Q12H [facility] Last Admin: 04/19/17 06:20 Dose: 5,000 units Azithromycin 500 mg/ Sodium (Chloride) 250 mls @ 250 mls/hr IVPB DAILY [facility] Last Admin: 04/18/17 11:00 Dose: 250 mls/hr Ceftriaxone Sodium 1 gm/ (Sodium Chloride) 100 mls @ 100 mls/hr IVPB DAILY [facility] Last Admin: 04/19/17 10:18 Dose: 100 mls/hr Montelukast Sodium (Singulair) 10 mg PO HS [facility] Last Admin: 04/18/17 21:33 Dose: 10 mg - Labs Labs: 04/19/17 06:03 04/19/17 06:03 PT 13.4 SECONDS (9.7-12.2) H 04/16/17 13:11 INR 1.2 04/16/17 13:11 APTT 28 SECONDS (21-34) 04/16/17 13:11 - Constitutional Appears: Non-toxic - Head Exam Head Exam: NORMAL INSPECTION - Eye Exam Eye Exam: Normal appearance - ENT Exam ENT Exam: Mucous Membranes Moist - Neck Exam Neck Exam: Full ROM - Respiratory Exam Respiratory Exam: Decreased Breath Sounds, Wheezes - Cardiovascular Exam Cardiovascular Exam: REGULAR RHYTHM, Murmur - GI/Abdominal Exam GI & Abdominal Exam: Normal Bowel Sounds - Rectal Exam Rectal Exam: Deferred - Extremities Exam Extremities Exam: Pedal Edema - Back Exam Back Exam: NORMAL INSPECTION - Neurological Exam Neurological Exam: Alert - Psychiatric Exam Psychiatric exam: Normal Affect - Skin Skin Exam: Normal Color Assessment and Plan (1) Aortic stenosis Assessment & Plan: medical management and outpatient follow up Status: Acute (2) HTN (hypertension) Assessment & Plan: increase Norvasc Status: Acute
[2017-04-19] MEDS: Azithromycin 500 MG in Sodium Chloride 0.9% 250 ML IVPB SCH (12:27)
[2017-04-20] MEDS: guaiFENesin DM 200 mg-20 mg/10 ml UD PO SCH ×4 (00:21→17:28)
[2017-04-20] MEDS: Albuterol-Ipratrop 3 mg / 0.5 (3 ml) UD INH SCH ×4 (01:22→19:14)
--- NOTE | 2017-04-20 01:25 | PN ---
DATE: 04/19/2017 SUBJECTIVE: The patient was seen and examined at bedside. The patient was complaining of palpitation, feeling anxious, nervous. As per the nurses, she appeared confused overnight. She denied any headache or dizziness, denied any chest pain but complaining of mild shortness of breath on exertion. Denies any nausea, vomiting, abdominal pain, diarrhea, or constipation. All other systems reviewed and were found to be negative. PHYSICAL EXAMINATION: GENERAL: Elderly female, lying in bed, in no acute distress. VITAL SIGNS: Blood pressure 173/61, pulse 74, respirations 18, temperature 98.3 degrees Fahrenheit, O2 sat 98% on room air. HEENT: Pupils equal, round, reacting to light and accommodation. Extraocular muscles are intact. No icterus. No pallor. NECK: Supple. No JVD. LUNGS: Bilateral vesicular breath sounds. Bilateral coarse wheezing. Left basal rhonchi heard. CARDIOVASCULAR SYSTEM: S1 and S2 present. Early diastolic murmur heard. CENTRAL NERVOUS SYSTEM: Alert, awake, oriented x3. No focal deficits noted. ABDOMEN: Soft, nontender. Bowel sounds present. No guarding. No rigidity. No rebound tenderness noted. EXTREMITIES: No edema. Palpable peripheral pulses. MEDICATIONS: Include DuoNeb, Norvasc 10 mg daily, atenolol 100 mg b.i.d., Zithromax 500 mg IV daily, Rocephin 1 gm daily, Plavix 75 mg p.o. daily, Pepcid 20 mg b.i.d., Feosol 325 mg b.i.d., Robitussin DM, and Singulair 10 mg p.o. at bedtime. LABORATORY DATA: Labs from this morning, WBC 8.3, hemoglobin 10.6, hematocrit 32.8, platelets 191. Sodium 136, potassium 4.5, chloride 99, bicarb 29, BUN 25, creatinine 0.9, glucose 120, calcium 9.3. LFTs within normal limits. Echocardiogram as read by Dr. Owusu shows severe aortic stenosis. Official echo result is pending. ASSESSMENT AND PLAN: An elderly female with hypertension, history of cerebrovascular accident, admitted for left lobe pneumonia, chronic obstructive pulmonary disease exacerbation, found to have iron deficiency anemia and aortic stenosis, uncontrolled hypertension, anxiety, nervousness and intermittent confusion, rule out secondary to steroids in the elderly. Her Norvasc is increased to 10 mg daily. We will monitor her blood pressure closely. Discontinue IV Solu-Medrol. I will continue with nebulizer treatments. I will consider changing albuterol to Xopenex. We will continue with current antibiotics. Discussed with Cardiology. Plan is to have cardiac catheterization as outpatient and pursue further regarding her aortic stenosis as outpatient. We will request Remedial Teacher and Case Management for discharge planning. We will continue with gastrointestinal and deep venous thrombosis prophylaxis. Boom Napoles MD
--- NOTE | 2017-04-20 07:20 | CARD ---
APPROVED REPORT EXAM: Two-dimensional and M-mode echocardiogram with Doppler and color Doppler. Other Information Quality : [employer] : INDICATION LV FUNCTION 2D DIMENSIONS LVOT Diameter1.8 (1.8-2.4cm) M-Mode DIMENSIONS RVDd1.62 (2.1-3.2cm)Left Atrium (MM)4.49 (2.5-4.0cm) IVSd1.18 (0.7-1.1cm)Aortic Root2.82 (2.2-3.7cm) LVDd5.18 (4.0-5.6cm)Aortic Cusp Exc.1.15 (1.5-2.0cm) PWd1.12 (0.7-1.1cm)FS (%) 42 % LVDs2.99 (2.0-3.8cm)LVEF (%)73 (>50%) Aortic Valve AoV Peak Txjrfojh547.7cm/sAoV VTI77.4cmAO Peak GR.45mmHg LVOT Peak Dhrcniiu814.0cm/sLVOT VTI44.59cmAO Mean GR.23mmHg MIREYA (VMAX)1.74qs7MGO (VTI)1.73cs9ZA P 1/2 [id number] Mitral Valve MV E Hicunvdi821.9cm/sMV A Kayhbjca819.0cm/sE/A ratio1.2 TDI E/Lateral E'0.0E/Medial E'0.0 Tricuspid Valve TR Peak Sxlcoldx270lh/sTR Peak Gr.[id number] <Conclusion> Suboptimal study Left ventricle: thickness: normal; size: normal; overall ejection fraction: 75%: diastolic filling pressures: elevated Mitral valve: annulus: normal: leaflets:mild calcification: excursion: normal; no significant trans-mitral gradient: mild incompetence: left atrium: dilated Aortic valve: leaflets:calcified thickening: excursion: normal; 45mmHg peaktrans-aortic gradient: mild incompetence: aortic root: normal; AV area 1.1cm2; Right sided Structures: Pulmonary valve: normal; no significant incompetence; Tricuspid valve: normal; no significant incompetence: Intra-cardiac hemodynamics: pulmonary systolic pressures: 45mmHg; central venous pressures: normal No pericardial effusion
--- NOTE | 2017-04-20 08:25 | CP.PCM.PN ---
Subjective - Date & Time of Evaluation Date of Evaluation: 04/20/17 Time of Evaluation: 07:45 - Subjective Subjective: patient has less cough and dyspnea Objective - Vital Signs/Intake and Output Vital Signs (last 24 hours): Temp Pulse Resp BP Pulse Ox 98.2 F 60 20 147/92 H 96 04/20/17 04:30 04/20/17 05:18 04/20/17 04:30 04/20/17 04:30 04/19/17 23:05 Intake and Output: 04/20/17 04/20/17 06:59 18:59 Output Total 300 Balance -300 - Medications Medications: Current Medications Albuterol/Ipratropium (Duoneb 3 Mg/0.5 Mg (3 Ml) Ud) 3 ml INH RQ6 [facility] Last Admin: 04/20/17 01:22 Dose: 3 ml Amlodipine Besylate (Norvasc) 10 mg PO DAILY [facility] Atenolol (Tenormin) 100 mg PO BID [facility] Last Admin: 04/19/17 17:35 Dose: 100 mg Clopidogrel Bisulfate (Plavix) 75 mg PO DAILY [facility] Last Admin: 04/19/17 10:17 Dose: 75 mg Famotidine (Pepcid) 20 mg PO BID [facility] Last Admin: 04/19/17 17:35 Dose: 20 mg Ferrous Sulfate (Feosol) 325 mg PO BID [facility] Last Admin: 04/19/17 17:35 Dose: 325 mg Guaifenesin/Dextromethorphan (Robitussin Dm) 10 ml PO Q6H [facility] Last Admin: 04/20/17 06:04 Dose: 10 ml Heparin Sodium (Porcine) (Heparin) 5,000 units SC Q12H [facility] Last Admin: 04/20/17 06:04 Dose: 5,000 units Azithromycin 500 mg/ Sodium (Chloride) 250 mls @ 250 mls/hr IVPB DAILY [facility] Last Admin: 04/19/17 12:27 Dose: 250 mls/hr Ceftriaxone Sodium 1 gm/ (Sodium Chloride) 100 mls @ 100 mls/hr IVPB DAILY [facility] Last Admin: 04/19/17 10:18 Dose: 100 mls/hr Montelukast Sodium (Singulair) 10 mg PO HS [facility] Last Admin: 04/19/17 22:16 Dose: 10 mg - Labs Labs: 04/19/17 06:03 04/19/17 06:03 PT 13.4 SECONDS (9.7-12.2) H 04/16/17 13:11 INR 1.2 04/16/17 13:11 APTT 28 SECONDS (21-34) 04/16/17 13:11 - Constitutional Appears: Non-toxic - Head Exam Head Exam: NORMAL INSPECTION - Eye Exam Eye Exam: Normal appearance - ENT Exam ENT Exam: Mucous Membranes Moist - Neck Exam Neck Exam: Full ROM - Respiratory Exam Respiratory Exam: Decreased Breath Sounds - Cardiovascular Exam Cardiovascular Exam: REGULAR RHYTHM - GI/Abdominal Exam GI & Abdominal Exam: Normal Bowel Sounds - Rectal Exam Rectal Exam: Deferred - Extremities Exam Extremities Exam: absent: Pedal Edema - Back Exam Back Exam: NORMAL INSPECTION - Neurological Exam Neurological Exam: Alert - Psychiatric Exam Psychiatric exam: Normal Affect - Skin Skin Exam: Normal Color Assessment and Plan (1) Aortic stenosis Assessment & Plan: outpatient cardiac cath Status: Acute (2) HTN (hypertension) Assessment & Plan: blood pressure control Status: Acute
--- NOTE | 2017-04-20 10:46 | CP.PCM.PN ---
Subjective - Date & Time of Evaluation Date of Evaluation: 04/20/17 Time of Evaluation: 10:40 - Subjective Subjective: Patient is seen and evaluated at bedside. Events from last night noted. Patient is anxious and nervous, had an episode of confusion last night. She is complaining of not feeling well and sob this morning. Objective - Vital Signs/Intake and Output Vital Signs (last 24 hours): Temp Pulse Resp BP Pulse Ox 98.0 F 79 18 185/75 H 94 L 04/20/17 07:05 04/20/17 10:39 04/20/17 07:05 04/20/17 10:39 04/20/17 07:05 Intake and Output: 04/20/17 04/20/17 06:59 18:59 Output Total 300 Balance -300 - Medications Medications: Current Medications Albuterol/Ipratropium (Duoneb 3 Mg/0.5 Mg (3 Ml) Ud) 3 ml INH RQ6 [facility] Last Admin: 04/20/17 01:22 Dose: 3 ml Amlodipine Besylate (Norvasc) 10 mg PO DAILY [facility] Last Admin: 04/20/17 10:39 Dose: 10 mg Atenolol (Tenormin) 100 mg PO BID [facility] Last Admin: 04/20/17 10:39 Dose: 100 mg Clopidogrel Bisulfate (Plavix) 75 mg PO DAILY [facility] Last Admin: 04/20/17 10:39 Dose: 75 mg Famotidine (Pepcid) 20 mg PO BID [facility] Last Admin: 04/20/17 10:39 Dose: 20 mg Ferrous Sulfate (Feosol) 325 mg PO BID [facility] Last Admin: 04/20/17 10:39 Dose: 325 mg Guaifenesin/Dextromethorphan (Robitussin Dm) 10 ml PO Q6H [facility] Last Admin: 04/20/17 06:04 Dose: 10 ml Heparin Sodium (Porcine) (Heparin) 5,000 units SC Q12H [facility] Last Admin: 04/20/17 06:04 Dose: 5,000 units Azithromycin 500 mg/ Sodium (Chloride) 250 mls @ 250 mls/hr IVPB DAILY [facility] Last Admin: 04/19/17 12:27 Dose: 250 mls/hr Ceftriaxone Sodium 1 gm/ (Sodium Chloride) 100 mls @ 100 mls/hr IVPB DAILY [facility] Last Admin: 04/20/17 10:40 Dose: 100 mls/hr Montelukast Sodium (Singulair) 10 mg PO HS [facility] Last Admin: 04/19/17 22:16 Dose: 10 mg - Labs Labs: 04/19/17 06:03 04/19/17 06:03 PT 13.4 SECONDS (9.7-12.2) H 04/16/17 13:11 INR 1.2 04/16/17 13:11 APTT 28 SECONDS (21-34) 04/16/17 13:11 - Constitutional Appears: Well, No Acute Distress - Head Exam Head Exam: ATRAUMATIC - Eye Exam Eye Exam: EOMI, PERRL - ENT Exam ENT Exam: Mucous Membranes Moist - Neck Exam Neck Exam: Normal Inspection - Respiratory Exam Respiratory Exam: Decreased Breath Sounds, Rhonchi, Wheezes - Cardiovascular Exam Cardiovascular Exam: REGULAR RHYTHM, +S1, +S2, Murmur - GI/Abdominal Exam GI & Abdominal Exam: Soft, Normal Bowel Sounds - Extremities Exam Extremities Exam: Full ROM - Neurological Exam Neurological Exam: Alert, Awake, Oriented x3 - Skin Skin Exam: Normal Color Assessment and Plan - Assessment and Plan (Free Text) Assessment: Elderly female with h/o HTN, CVA, left lobe pneumonia, uncontrolled blood pressure, iron deficiency anemia, Severe Aortic stenosis, Anxiety- ??secondary to medication Plan: Continue with nebulizer treatments, O2, antibiotics, and cough meds as ordered steroids discontinued yesterday. Blood pressure is still high, Norvasc added, continue with tenormin 100 mg po bid, monitor blood pressure. Obtain psych evaluation, spoke to Dr. Gilliam Give Xanax as needed Continue with feosol Continue with GI and DVT prophylaxis. Cardiac work up as out patient as per Dr. Owusu D/W case management regarding discharge planning. If patient agrees and bed available, patient can be discharged to [facility].
--- NOTE | 2017-04-20 11:17 | PCM.PSYCH ---
Initial Psychiatric Evaluation - Initial Psychiatric Evaluation Type of Admission: Voluntary Legal Status: Capacity Chief Complaint (in patient's own words): "I am nervous" History of Present Illness and Precipitating Events: The patient is an 81 single female and has no children. Consult was asked to r/o depression, SI. 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 The patient has been admitted for pneumonia. When asked about if she had a SI statement the patient stated "I just say that sometimes, I don't actually mean it." The patient has no current suicidal ideations or intent to hurt herself. She denies depressive sxs but anxiety. The patient reports that getting sick and being in the hospital has been particularly stressful because she never had an issue with her health in the past. She states that she is normally a very happy person and has no psychiatric history. Medical Hx: HTN Psych Hx: denies Fam Hx: denies Current Medications: Active Medications Generic Name Dose Route Start Last Admin Trade Name Freq PRN Reason Stop Dose Admin Albuterol/Ipratropium 3 ml 04/16/17 20:00 04/20/17 01:22 Duoneb 3 Mg/0.5 Mg (3 Ml) Ud INH 3 ml RQ6 [facility] Administration Amlodipine Besylate 10 mg 04/20/17 10:00 04/20/17 10:39 Norvasc PO 10 mg DAILY [facility] Administration Atenolol 100 mg 04/16/17 18:00 04/20/17 10:39 Tenormin PO 100 mg BID [facility] Administration Clopidogrel Bisulfate 75 mg 04/17/17 10:00 04/20/17 10:39 Plavix PO 75 mg DAILY [facility] Administration Famotidine 20 mg 04/17/17 10:00 04/20/17 10:39 Pepcid PO 20 mg BID [facility] Administration Ferrous Sulfate 325 mg 04/17/17 12:00 04/20/17 10:39 Feosol PO 325 mg BID [facility] Administration Guaifenesin/Dextromethorphan 10 ml 04/17/17 12:00 04/20/17 06:04 Robitussin Dm PO 10 ml Q6H [facility] Administration Heparin Sodium (Porcine) 5,000 units 04/18/17 18:00 04/20/17 06:04 Heparin SC 5,000 units Q12H [facility] Administration Azithromycin 500 mg/ Sodium 250 mls @ 250 mls/hr 04/16/17 15:45 04/19/17 12: 27 Chloride IVPB 250 mls/hr DAILY [facility] Administration Ceftriaxone Sodium 1 gm/ 100 mls @ 100 mls/hr 04/17/17 10:00 04/20/17 10:40 Sodium Chloride IVPB 100 mls/hr DAILY [facility] Administration Montelukast Sodium 10 mg 04/16/17 22:00 04/19/17 22:16 Singulair PO 10 mg HS [facility] Administration Past Psychiatric History - Past Psychiatric History Previous Treatment History: None Pertinent Medical Hx (Current Medical&Sleep Prob, Allergies): Allergies Allergy/AdvReac Type Severity Reaction Status Date / Time No Known Allergies Allergy Verified 04/16/17 12:36 Atenolol [Tenormin] 100 mg PO BID 04/16/17 Clopidogrel [Plavix] 75 mg PO DAILY 04/16/17 Review of Systems - Neurological Neurological: Abnormal Hearing - Psychiatric Psychiatric: Anxiety, Memory Loss. absent: Abnormal Sleep Pattern, Depression, Suicidal Ideation Mental Status Examination - Personal Presentation Personal Presentation: Looks stated age - Affect Affect: Broad - Motor Activity Motor Activity: Calm - Reliability in Providing Information Reliability in Providing Information: Good - Speech Speech: Organized - Mood Mood: Anxious - Formal Thought Process Formal Thought Process: No Impairment - Obsessions/Compulsions Obsessions: None Compulsions: None - Cognitive Functions Orientation: Person, Place, Situation, Time Sensorium: Alert Attention/Concentration: Attentive Abstract Thinking: [place] Estimate of Intelligence: Average Judgement: Intact, as evidence by: Insight regarding need for hospitalization Memory: Recent intact, as evidence by: Ability to recall events of the day, Remote intact, as evidenced by: Abilit to recall sig. life events - Strength & Assets Inventory Strength & Assets Inventory: Intelligence, Skills, Life experience, Cooperative - Limitations Limitations: Living alone DSM 5 DX - DSM 5 DSM 5 Diagnosis: Adjustment Disorder with anxiety - Recommended/Plan of Treatment Treatment Recommendations and Plan of Treatment: Xanax ordered PRN Psychoeducation and support daily Encourage compliance with meds and after care Teach healthy lifestyle methods, i.e. diet, exercise, meditation Patient cleared for discharge 31 min Prognosis: good with treatment - Smoking Cessation Smoking Cessation Initiated: No
[2017-04-20] MEDS: Azithromycin 500 MG in Sodium Chloride 0.9% 250 ML IVPB SCH (12:16)
[2017-04-21] MEDS: guaiFENesin DM 200 mg-20 mg/10 ml UD PO SCH ×4 (00:26→18:38)
[2017-04-21] MEDS: Albuterol-Ipratrop 3 mg / 0.5 (3 ml) UD INH SCH ×4 (01:18→19:22)
[2017-04-21 01:41] VITALS: RESP 20
[2017-04-21 08:03] VITALS: O2SAT 97
--- NOTE | 2017-04-21 08:58 | CP.PCM.PN ---
Subjective - Date & Time of Evaluation Date of Evaluation: 04/21/17 Time of Evaluation: 08:45 - Subjective Subjective: Discharge summary dictated #[id number] Objective - Vital Signs/Intake and Output Vital Signs (last 24 hours): Temp Pulse Resp BP Pulse Ox 98.9 F 60 20 137/55 L 97 04/21/17 08:01 04/21/17 08:01 04/21/17 08:01 04/21/17 08:01 04/21/17 08:01 Intake and Output: 04/21/17 04/21/17 06:59 18:59 Intake Total 40 Balance 40 - Medications Medications: Current Medications Albuterol/Ipratropium (Duoneb 3 Mg/0.5 Mg (3 Ml) Ud) 3 ml INH RQ6 [facility] Last Admin: 04/21/17 07:57 Dose: 3 ml Alprazolam (Xanax) 0.25 mg PO BID PRN PRN Reason: Severe anxiety Stop: 04/27/17 11:18 Amlodipine Besylate (Norvasc) 10 mg PO DAILY [facility] Last Admin: 04/20/17 10:39 Dose: 10 mg Atenolol (Tenormin) 100 mg PO BID [facility] Last Admin: 04/20/17 17:28 Dose: 100 mg Clopidogrel Bisulfate (Plavix) 75 mg PO DAILY [facility] Last Admin: 04/20/17 10:39 Dose: 75 mg Famotidine (Pepcid) 20 mg PO BID [facility] Last Admin: 04/20/17 17:28 Dose: 20 mg Ferrous Sulfate (Feosol) 325 mg PO BID [facility] Last Admin: 04/20/17 17:28 Dose: 325 mg Guaifenesin/Dextromethorphan (Robitussin Dm) 10 ml PO Q6H [facility] Last Admin: 04/21/17 05:57 Dose: 10 ml Heparin Sodium (Porcine) (Heparin) 5,000 units SC Q12H [facility] Last Admin: 04/21/17 05:57 Dose: 5,000 units Azithromycin 500 mg/ Sodium (Chloride) 250 mls @ 250 mls/hr IVPB DAILY [facility] Last Admin: 04/20/17 12:16 Dose: 250 mls/hr Ceftriaxone Sodium (Rocephin Iv 1 Gm Duplex) 50 mls @ 100 mls/hr IVPB DAILY [facility] Montelukast Sodium (Singulair) 10 mg PO HS [facility] Last Admin: 04/20/17 22:02 Dose: Not Given - Labs Labs: 04/19/17 06:03 04/19/17 06:03 PT 13.4 SECONDS (9.7-12.2) H 04/16/17 13:11 INR 1.2 04/16/17 13:11 APTT 28 SECONDS (21-34) 04/16/17 13:11
[2017-04-21] MEDS ORDERED: cefTRIAXone IV 1 gm in Dextros 50 ML IVPB SCH (10:00)
[2017-04-21] MEDS: Azithromycin 500 MG in Sodium Chloride 0.9% 250 ML IVPB SCH (10:43)
[2017-04-21 17:13] VITALS: BP 123/60; PULSE 73; TEMP 98.1
--- NOTE | 2017-04-22 01:00 | DS ---
Date of transfer to subacute rehab [facility] on 04/21/2017. DISCHARGE DIAGNOSES: 1. Left lung pneumonia. 2. Chronic obstructive pulmonary disease exacerbation. 3. Accelerated hypertension. 4. Severe aortic stenosis. 5. Anxiety. 6. History of cerebrovascular accident without any residual neurologic deficits. HISTORY OF PRESENT ILLNESS: Ms. Menon is an 81-year-old female with history of hypertension, CVA many years ago, who has been following up with Dr. Valverde, came to the ED as referred by her PMD for hospital admission for cough and wheezing. The patient was found to have pneumonia and the patient is being admitted for further management. Today, the patient is feeling better. Denied any headache, dizziness. Denied any chest pain. Shortness of breath is improving. Denied any nausea or vomiting. Denied any urinary complaints. Denied any chest pain. Denied any neurologic symptoms. All other systems reviewed and were found to be negative. The patient was supposed to be discharged on 04/20/2017 to subacute rehab. When the ambulance arrived, the patient became anxious and hypoxic, and the patient's discharge was held yesterday. The patient denies any symptoms of anxiety this morning. PHYSICAL EXAMINATION: GENERAL: Elderly female, lying in bed, in no acute distress. VITAL SIGNS: Blood pressure 123/60, pulse 73, respirations 20, temperature 98.1 degrees Fahrenheit, and O2 sats 97% on room air. HEENT: Pupils equal, round, reacting to light and accommodation. Extraocular muscles intact. No icterus. No pallor. No oral thrush. No pharyngeal congestion. NECK: Supple. No JVD. LUNGS: Bilateral vesicular breath sounds. Occasional wheezing. Left basal rhonchi. CVS: S1 and S2 present, regular. Early diastolic murmur heard. ABDOMEN: Soft, nontender. Bowel sounds present. No guarding. No rigidity. No rebound tenderness noted. COMPLIANCE NURSE: Alert, awake, and oriented x3. No focal deficits noted. EXTREMITIES: No edema.. LABORATORY DATA: Labs from 04/19/2017 shows WBC 8.3, hemoglobin 10.6, hematocrit 32.8, and platelets 191. Sodium 136, potassium 4.5, chloride 99, bicarb 29, BUN 25, creatinine 0.9, glucose 120, hemoglobin A1c 6.2, total bilirubin 0.5, AST 21, ALT 20, alkaline phosphatase 50, total protein 6.3, and albumin 3.6. Legionella and mycoplasma negative. B12 849, iron saturation 9%, triglyceride 72, cholesterol 144, LDL 64, and HDL 48. Blood cultures negative. CT of the chest shows left upper lobe pneumonia adjacent predominantly central lobular nodules may reflect pneumonitis, a small hiatal hernia. Echocardiogram consistent with overall ejection fraction 75%. Aortic valve calcified thickening, peak gradient 45 mmHg, mild incompetent, LV area is 1.1 cm. HOSPITAL COURSE: The patient was admitted to the telemetry. The patient was started on nebulizer treatment Solu-Medrol and antibiotics. Chest x-ray was questionable infiltrate. CT scan of the chest was done, which was consistent with left lobe pneumonia. The patient improved with nebulizer treatments, steroids, antibiotics and cough medication. The patient has clinically aortic stenosis. The patient was evaluated by final assembly and packing supervisor. Recommend cardiac workup as outpatient. The patient became anxious and nervous, complaining of intermittent palpitation, so steroids were discontinued and the patient was evaluated by Psych. The patient was started on Xanax as needed. She was suppose to be discharged on 04/20/2017 to subacute rehab. At the time of transfer, the patient became anxious and nervous, was hypoxic, so discharge was held and transfer arrangements were made for today to be transferred to subacute rehab. The patient is advised to follow up with PMD, pulmonary and needs to have repeat CT chest done for follow up and needs to follow up with cardiology. The patient is aware of the patient's medical condition and is willing to follow up with her primary as outpatient. CONDITION UPON DISCHARGE: The patient is alert, awake, and oriented x3 and hemodynamically stable. DISCHARGE INSTRUCTIONS: Follow up with PMD. Follow up with Pulmonary. Follow up with Cardiology. Follow up with Psychiatry. DISCHARGE MEDICATIONS: DuoNeb q.6 hours p.r.n., Xanax 0.25 mg p.o., bi,d. as needed, amlodipine 10 mg daily, atenolol 100 mg p.o., b.i.d., Zithromax 500 mg p.o. daily, Rocephin 1 gm IV daily, Plavix 75 mg p.o. daily, Pepcid 20 mg p.o. b.i.d. Feosol 325 mg p.o. b.i.d. , Robitussin DM 10 mL q.6 hours as needed, Singulair 10 mg p.o. at bedtime. DISCHARGE DIET: Low-sodium, low-cholesterol 1800 calorie ADA diet. ACTIVITY: As tolerated. Ednavaevangelina Napoles MD
== END 2017-04-21 21:33 | DRG 190 ==
LOC: C.ER 11:56 → C.9E 14:40 → C.6T 19:00 → OBSVTOIN 04-17 11:47
PROVIDERS: ADMIT Internal Medicine; ATTEND Internal Medicine
DX: J44.1 Chronic obstructive pulmonary disease with (acute) exacerbation (principal); J18.9 Pneumonia, unspecified organism; J45.901 Unspecified asthma with (acute) exacerbation; I35.0 Nonrheumatic aortic (valve) stenosis; R09.02 Hypoxemia; Z86.73 Personal history of transient ischemic attack (TIA), and cerebral infarction without residual deficits; F43.22 Adjustment disorder with anxiety; D50.9 Iron deficiency anemia, unspecified; Z87.891 Personal history of nicotine dependence; I10 Essential (primary) hypertension